=== PATIENT | male | born 1965 | race Caucasian/White ===

== ENCOUNTER 2018-07-01 09:03 | Emergency (ER) | payer OTHER ==
[2018-07-01 09:34] VITALS: BP 139/93
[2018-07-01] MEDS ORDERED: Ibuprofen TAB* 600 MG PO ONE (09:50)
[2018-07-01] MEDS ORDERED: Dexamethasone IV* 4 MG/ML 1 ML (4 MG) IM ONE (09:51)
--- NOTE | 2018-07-01 10:24 | UC ---
Back Pain HPI - HPI Summary HPI Summary: 52-year-old male history of bariatric Surgery in the past, presents with sudden onset left-sided hip pain and lower back pain after he stepped on a wet bleacher and his left foot slid out from under him. Patient felt and heard a popping sensation. Patient worked thereafter for many hours, was able to walk, denies any urinary or bowel symptoms, denies any saddle anesthesia or fever. No prior episodes. - History of Current Complaint Chief Complaint: UCTrauma Stated Complaint: WC - LEFT HIP/KNEE INJURY Pain Intensity: 8 - Allergies/Home Medications Allergies/Adverse Reactions: Allergies Allergy/AdvReac Type Severity Reaction Status Date / Time No Known Allergies Allergy Verified 07/01/18 09:34 PMH/Surg Hx/FS Hx/Imm Hx - Additional Past Medical History Additional PMH: Bariatric surgery in the past Previously Healthy: Yes - Surgical History Surgical History: Yes Surgery Procedure, Year, and Place: Stomach stapled 2011, hernia repair - Social History Alcohol Use: None Alcohol Amount: recovery since 2009 Substance Use Type: None Smoking Status (MU): Never Smoked Tobacco Review of Systems Constitutional: Negative Skin: Negative Eyes: Negative ENT: Negative Respiratory: Negative Cardiovascular: Negative Gastrointestinal: Negative Motor: Negative Neurovascular: Negative Musculoskeletal: Other: - Back pain as described in history of present illness All Other Systems Reviewed And Are Negative: Yes Physical Exam - Summary Physical Exam Summary: Gen: alert, in no acute distress HEENT: EOMI, normocephalic, atruamatic Neck: supple, no masses CV: Normal s1 s2, no murmurs Resp: normal breath sounds b/l GI: no tenderness, no masses Musculoskeletal: normal ROM all 4 extremities. Positive straight leg test on the left. No midline tenderness. walking normally. Skin: no rash Neuro: No weakness or numbness in both lower extremities. Normal distal pulses in the pedal and posterior tibial areas bilaterally. Lymph: no lymphadenopathy Psych: appropriate affect, oriented Triage Information Reviewed: Yes Vital Signs: Initial Vital Signs Temp 36.1 C 07/01/18 09:27 Pulse 60 07/01/18 09:27 Resp 16 07/01/18 09:27 BP 139/93 07/01/18 09:27 Pulse Ox 100 07/01/18 09:27 Diagnostics - Radiology x-ray lumbar spine Xray Interpretation: No Acute Changes Radiology Interpretation Completed By: ED Physician Back Pain Course/Dx - Course Course Of Treatment: Patient remains neurologically intact, walking normally, feels better after medications, instructed to follow up with his primary care physician for further imaging and workup. Agrees and understands discharge instructions. - Differential Dx/Diagnosis Provider Diagnoses: Lower back strain Discharge - Sign-Out/Discharge Documenting (check all that apply): Patient Departure All imaging exams completed and their final reports reviewed: Yes - Discharge Plan Condition: Stable Disposition: HOME Prescriptions: traMADol TAB* [Ultram*] 25 mg PO BID PRN #10 tab MDD 2 tabs PRN Reason: Pain Scale 6-10 Patient Education Materials: Acute Low Back Pain (ED) Forms: *Work Release Referrals: Lex Collins MD [Primary Care Provider] - Additional Instructions: PLEASE TAKE MEDICATIONS DIRECTED PLEASE MAKE AN APPOINTMENT TO BE SEEN BY A PRIMARY CARE DOCTOR WITHIN 1-2 WEEKS PLEASE REPORT TO THE ER FOR ANY WORSENING OR CONCERNING SYMPTOMS - Billing Disposition and Condition Condition: STABLE Disposition: Home
--- NOTE | 2018-07-01 10:32 | RAD ---
INDICATION: Left hip pain COMPARISON: Lumbar spine radiograph dated July 21, 2004 TECHNIQUE: 3 views of the lumbar spine were obtained. FINDINGS: The vertebra are in normal alignment. No fracture is seen. There is mild loss of intervertebral disc height at the lower thoracic spine and L5/S1. There is a mild degree of bony proliferation overlying the lower lumbar facet joints. IMPRESSION: Mild degenerative changes of the lower thoracic and lumbar spine that have progressed since the most recent July 21, 2004 lumbar spine radiograph.
== END 2018-07-01 10:43 | disposition home or self-care (01) ==
LOC: UCCORT 09:03
DX: S39.012A Strain of muscle, fascia and tendon of lower back, initial encounter (principal); W01.198A Fall on same level from slipping, tripping and stumbling with subsequent striking against other object, initial encounter; Y93.89 Activity, other specified; Y92.9 Unspecified place or not applicable
CPT/HCPCS: 72100; 96372; 99212; A9270-GY; G0463; J1100